=== PATIENT | female | born 2000 | race Two or more races ===

== ENCOUNTER 2023-11-07 15:12 | Emergency (ER) | payer OTHER ==
[~2023-11-07] VITALS: Ht 162.6 cm; Wt 75.3 kg
[2023-11-07] MEDS ORDERED: SYNTHROID100 MCG PO (15:52)
[2023-11-07] MEDS ORDERED: SYNTHROID88 MCG PO (15:52)
[2023-11-07] MEDS ORDERED: VITAMIN D-40010 MCG PO (15:53)
[2023-11-07] MEDS ORDERED: ELVITEG/COB/EMTRI/TENOFO DISOP 1 UDTAB TABLET PO STA (17:07)
[2023-11-07] MEDS ORDERED: STRIBILD TABLE1 EACH PO (17:19)
== END 2023-11-07 17:21 | disposition home or self-care (01) ==
LOC: ER 15:12
DX: S61.239A Puncture wound without foreign body of unspecified finger without damage to nail, initial encounter (principal); W46.1XXA Contact with contaminated hypodermic needle, initial encounter; Y93.89 Activity, other specified; Y92.230 Patient room in hospital as the place of occurrence of the external cause; Y99.9 Unspecified external cause status

== ENCOUNTER 2023-11-13 04:00 | Outpatient (CLI) | payer OTHER ==
[~2023-11-13 04:00] MED LIST: STRIBILD TABLE1 EACH PO; SYNTHROID100 MCG PO; SYNTHROID88 MCG PO; VITAMIN D-40010 MCG PO
== END 2023-11-13 05:00 | disposition home or self-care (01) ==
LOC: PPH VACUNA 04:00
PROVIDERS: ATTEND Emergency Medicine Pediatric Emergency Medicine
DX: Z23 Encounter for immunization (principal)

== ENCOUNTER 2024-03-01 16:41 | Emergency (ER) | payer OTHER ==
[~2024-03-01] VITALS: Ht 162.6 cm; Wt 72.6 kg
[2024-03-01] MEDS ORDERED: ELVITEG/COB/EMTRI/TENOFO DISOP 1 UDTAB TABLET PO ONE ×4 (16:55→17:00)
== END 2024-03-01 17:02 | disposition home or self-care (01) ==
LOC: ER 16:44
DX: Z57.9 Occupational exposure to unspecified risk factor (principal); W46.0XXA Contact with hypodermic needle, initial encounter; Z88.0 Allergy status to penicillin; Z91.013 Allergy to seafood

== ENCOUNTER → 2024-06-08 | Emergency (ER) | payer OTHER | END | disposition home or self-care (01) | LOC: ER 14:25 | DX: A49.3 Mycoplasma infection, unspecified site (principal); Z87.09 Personal history of other diseases of the respiratory system; Z88.0 Allergy status to penicillin; Z91.013 Allergy to seafood ==

== ENCOUNTER 2024-08-05 14:58 | Emergency (ER) | payer OTHER ==
[~2024-08-05] VITALS: Ht 162.6 cm; Wt 72.6 kg
[2024-08-05] MEDS ORDERED: SYNTHROID200 MCG PO (15:18)
[2024-08-05] MEDS ORDERED: PROAIR RESPICL90 MCG (15:18)
[2024-08-05] MEDS ORDERED: ELVITEG/COB/EMTRI/TENOFO DISOP 1 UDTAB TABLET PO ONE ×2 (18:15)
== END 2024-08-05 18:47 | disposition home or self-care (01) ==
LOC: ER 14:58
DX: S61.238A Puncture wound without foreign body of other finger without damage to nail, initial encounter (principal); W46.1XXA Contact with contaminated hypodermic needle, initial encounter; Y93.89 Activity, other specified; Y92.238 Other place in hospital as the place of occurrence of the external cause; Y99.9 Unspecified external cause status; Z88.0 Allergy status to penicillin; Z91.013 Allergy to seafood; Z85.850 Personal history of malignant neoplasm of thyroid; Z87.09 Personal history of other diseases of the respiratory system